=== PATIENT | male | born 2005 ===

== ENCOUNTER 2024-03-19 08:13 | Day surgery (SDC) | payer OTHER ==
[2024-03-12 13:17] LABS: HEMOGLOBIN 14.7 g/dL (13-16.00); MEAN CELL VOLUME 85.1 fL (80.0-100.00); MEAN CORPUSCULAR HEMOGLOBIN 29.1 pg (27.00-32.0); MEAN CORPUSCULAR HGB CONC 34.2 g/dl (32.0-36.0); PLATELET COUNT 271 K/uL (150-450); RED BLOOD COUNT 5.05 M/uL (4.00-6.00); RED CELL DISTRIBUTION WIDTH 13.6 % (11.5-14.5)
[2024-03-12 13:17] LABS: PH,URINE 7.5 (5.0-8.0); URINE APPEARANCE Clear; URINE BILIRRUBIN Negative (NEGATIVE); URINE BLOOD Negative; URINE COLOR Yellow; URINE GLUCOSE Negative (NEGATIVE); URINE LEUKOCYTE Negative; URINE NITRATE Negative; URINE PROTEIN Negative (NEGATIVE); URINE UROBILINOGEN 0.2 E.U./dl
[2024-03-12 13:24] LABS: URINE BACTERIA 3.7 uL (0.0-1933); URINE EPITHELIAL CELLS 0.6 uL (0.0-38.8); URINE RBC 0.3 uL (0.0-20.8)
[2024-03-12 13:52] LABS: INR 1.08; PARTIAL THROMBOPLASTIN TIME 34.2 SECONDS (22.0-34.0); PROTHROMBIN TIME 11.3 SECONDS (9.0-11.5)
[2024-03-12 14:29] LABS: ALBUMIN 4.7 gm/dL (3.4-5.0); BILIRUBIN TOTAL 0.32 mg/dL (0.3-1.2); CALCIUM 10.2 mg/dL (8.5-10.1); CREATININE SERUM 0.9 mg/dL (0.70-1.30); GFR 108.71; GLOBULINA 3.6 G/DL (2.4-3.5); POTASSIUM 4.51 mEq/L (3.5-5.1); TOTAL PROTEIN 8.3 gm/dL (6.4-8.2)
[2024-03-19] MEDS ORDERED: HEMOSTATIC MATRIX 1 KIT KIT TOP ONE (13:45)
[2024-03-19] MEDS ORDERED: CEFTRIAXONE SODIUM 2,000 MG in 0.9 % SODIUM CHLORIDE 50 ML IV NR (13:45)
[2024-03-19] MEDS ORDERED: METRONIDAZOLE/SODIUM CHLORIDE 200 ML IV ONE (13:45)
[2024-03-19] MEDS ORDERED: BUPIVACAINE HCL 30 ML VIAL IJ ONE (13:45)
[2024-03-19] MEDS ORDERED: POVIDONE-IODINE 118 ML BOTT TP ONE (13:45)
[2024-03-19] MEDS ORDERED: LIDOCAINE HCL 1%/EPINEPHRINE 20ML VIAL IJ ONE (13:45)
[2024-03-19] MEDS ORDERED: DIBUCAINE 30 GM TUBE RC NR (13:45)
[2024-03-19] MEDS ORDERED: TAMSULOSIN HCL 0.4 MG CAP PO ONE (16:00)
[2024-03-19] MEDS ORDERED: OXYC1TAB9 PO (16:07)
== END 2024-03-19 20:55 | disposition home or self-care (01) ==
LOC: CIR.AMB 08:13
PROVIDERS: ATTEND Surgery
DX: L05.01 Pilonidal cyst with abscess (principal); K62.89 Other specified diseases of anus and rectum; E16.2 Hypoglycemia, unspecified; Z88.6 Allergy status to analgesic agent

== ENCOUNTER 2025-03-17 06:20 | Day surgery (SDC) | payer OTHER ==
[2025-03-09 10:56] VITALS: BP 121/77
[~2025-03-17] VITALS: Ht 180.3 cm; Wt 84.4 kg
[~2025-03-17 06:20] MED LIST: OXYC1TAB9 PO
[2025-03-17] MEDS ORDERED: BUPIVACAINE HCL/PF 0.25% 30ML VIAL InF ONE (11:00)
[2025-03-17] MEDS ORDERED: POVIDONE-IODINE 118 ML BOTT TOP ONE (11:00)
[2025-03-17] MEDS ORDERED: CEFTRIAXONE SODIUM 2,000 MG VIAL IV ONE (11:00)
[2025-03-17] MEDS ORDERED: METRONIDAZOLE/SODIUM CHLORIDE 500 MG/100 ML PIGGYBACK IV ONE (11:00)
[2025-03-17] MEDS ORDERED: LIDOCAINE HCL 1%/EPINEPHRINE 20ML VIAL IJ ONE (11:00)
[2025-03-17] MEDS ORDERED: TAMSULOSIN HCL 0.4 MG CAP PO ONE (12:30)
[2025-03-17] MEDS ORDERED: OXYCODONE HCL5 MG PO (12:32)
== END 2025-03-17 17:05 | disposition home or self-care (01) ==
LOC: CIR.AMB 06:20
PROVIDERS: ATTEND Surgery
DX: L05.01 Pilonidal cyst with abscess (principal); K62.89 Other specified diseases of anus and rectum